=== PATIENT | female | born 1960 | race Caucasian/White ===

== ENCOUNTER → 2019-01-09 | Outpatient (CLI) | payer BC, MEDICARE ==
[2019-01-11 16:06] LABS: HPV 16 Negative (Negative); HPV 18 Negative (Negative); HPV OTHER HR TYPES Negative (Negative)
== END | disposition home or self-care (01) ==
LOC: LAB 15:45 → LAB SHORT 15:45
PROVIDERS: Registered Nurse
DX: Z01.419 Encounter for gynecological examination (general) (routine) without abnormal findings (principal)
CPT/HCPCS: 87624; G0145

== ENCOUNTER 2021-09-14 11:18 | Day surgery (SDC) | payer MEDICARE, BC ==
[~2021-09-14] VITALS: Ht 157.5 cm; Wt 69.9 kg
[2021-09-14] MEDS ORDERED: PROG100 PO (12:08)
[2021-09-14] MEDS ORDERED: CONEST1.25 PO (12:08)
[2021-09-14] MEDS ORDERED: TESTOSTERONE (12:09)
--- NOTE | 2021-09-14 12:52 | NUR ---
09/14/21 1252 Ava Fraser PT. VERBALIZES THROWING UP AFTER DRINKING PREP. DENIES NAUSEA NOW.
== END 2021-09-14 14:09 | disposition home or self-care (01) ==
LOC: ORSCSDS 11:18
PROVIDERS: Internal Medicine Gastroenterology
PROC: 0DBK8ZX Excision of Ascending Colon, Via Natural or Artificial Opening Endoscopic, Diagnostic (ICD-10-PCS; principal; 2021-09-14 12:15)
DX: Z12.11 Encounter for screening for malignant neoplasm of colon (principal); Z86.010 Personal history of colon polyps; D12.2 Benign neoplasm of ascending colon; K57.30 Diverticulosis of large intestine without perforation or abscess without bleeding; Z98.84 Bariatric surgery status; E11.9 Type 2 diabetes mellitus without complications; J45.909 Unspecified asthma, uncomplicated
CPT/HCPCS: 88305; J2704; J7120

== ENCOUNTER 2021-12-20 08:37 | Emergency (ER) | payer MEDICARE, BC ==
[~2021-12-20] VITALS: Ht 160 cm; Wt 71.7 kg
[~2021-12-20 08:37] MED LIST: CONEST1.25 PO; PROG100 PO; TESTOSTERONE
[2021-12-20] MEDS ORDERED: OXYC5 PO ×3 (10:55→10:58)
== END 2021-12-20 11:38 | disposition home or self-care (01) ==
LOC: ER 08:37
DX: S90.32XA Contusion of left foot, initial encounter (principal); W23.0XXA Caught, crushed, jammed, or pinched between moving objects, initial encounter; Z79.899 Other long term (current) drug therapy
CPT/HCPCS: 73630; A9270; J1885

== ENCOUNTER → 2022-05-14 | Outpatient (CLI) | payer MEDICARE, BC ==
[~2022-05-14] MED LIST changes: +OXYC5 PO
== END ==
LOC: LAB SHORT 13:24 → LAB 13:24
PROVIDERS: Nurse Practitioner Family
DX: Z01.419 Encounter for gynecological examination (general) (routine) without abnormal findings (principal)
CPT/HCPCS: G0145

== ENCOUNTER → 2024-08-29 | Outpatient (CLI) | payer MEDICARE | END | disposition home or self-care (01) | LOC: LAB 13:17 → LAB SHORT 13:17 | DX: G47.00 Insomnia, unspecified (principal); M79.672 Pain in left foot; M79.7 Fibromyalgia; N81.84 Pelvic muscle wasting; N94.0 Mittelschmerz; N95.0 Postmenopausal bleeding; R87.1 Abnormal level of hormones in specimens from female genital organs; Z76.89 Persons encountering health services in other specified circumstances | CPT/HCPCS: 85651 ==